=== PATIENT | male | born 1995 | race American Indian/Alaskan Native ===

== ENCOUNTER 2018-02-19 14:47 | Emergency (ER) | payer SELFPAY ==
[2018-02-19 14:55] VITALS: BP 157/96
--- NOTE | 2018-02-19 16:01 | Emergency Department Report ---
- General Chief complaint: Skin Rash Stated complaint: BACK PAIN/SKIN INFECTION Time Seen by Provider: 02/19/18 15:46 Source: patient Mode of arrival: Ambulatory Limitations: No Limitations - History of Present Illness Initial comments: Patient is a 23-year-old gentleman who is complaining of infection to the skin mostly on his back now spreading to the upper chest. Patient has had multiple bouts of lesions in this area over the last several years. Patient told his father that he was in pain 6 out of 10 today which is what prompted him to come to the hospital. Patient has a family history of skin infections. Patient denies any fevers chills nausea vomiting at this time. - Related Data Previous Rx's Medication Instructions Recorded Last Taken Type Chlorhexidine Gluconate [Hibiclens] 1 applic TP BID #236 ml 02/19/18 Unknown Rx Clindamycin [Clindamycin CAP] 300 mg PO Q8H 10 Days cap 02/19/18 Unknown Rx Ibuprofen [Motrin] 800 mg PO Q8HR PRN #20 tablet 02/19/18 Unknown Rx Mupirocin Calcium [Bactroban Nasal 1 gm NS BID #1 tube 02/19/18 Unknown Rx 2%] traMADol [Ultram] 50 mg PO Q6HR PRN #12 tablet 02/19/18 Unknown Rx Allergies Allergy/AdvReac Type Severity Reaction Status Date / Time No Known Allergies Allergy Verified 02/19/18 14:53 Abscess Boil HPI - HPI Chief Complaint: Skin Rash Stated Complaint: BACK PAIN/SKIN INFECTION Time Seen by Provider: 02/19/18 15:46 Home Medications: Previous Rx's Medication Instructions Recorded Last Taken Type Chlorhexidine Gluconate [Hibiclens] 1 applic TP BID #236 ml 02/19/18 Unknown Rx Clindamycin [Clindamycin CAP] 300 mg PO Q8H 10 Days cap 02/19/18 Unknown Rx Ibuprofen [Motrin] 800 mg PO Q8HR PRN #20 tablet 02/19/18 Unknown Rx Mupirocin Calcium [Bactroban Nasal 1 gm NS BID #1 tube 02/19/18 Unknown Rx 2%] traMADol [Ultram] 50 mg PO Q6HR PRN #12 tablet 02/19/18 Unknown Rx Allergies/Adverse Reactions: Allergies Allergy/AdvReac Type Severity Reaction Status Date / Time No Known Allergies Allergy Verified 02/19/18 14:53 ED Review of Systems ROS: Stated complaint: BACK PAIN/SKIN INFECTION Other details as noted in HPI Comment: All other systems reviewed and negative ED Past Medical Hx - Past Medical History Previous Medical History?: No - Surgical History Past Surgical History?: No - Social History Smoking Status: Current Every Day Smoker Substance Use Type: None - Medications Home Medications: Home Medications Medication Instructions Recorded Confirmed Last Taken Type Chlorhexidine Gluconate [Hibiclens] 1 applic TP BID #236 ml 02/19/18 Unknown Rx Clindamycin [Clindamycin CAP] 300 mg PO Q8H 10 Days cap 02/19/18 Unknown Rx Ibuprofen [Motrin] 800 mg PO Q8HR PRN #20 tablet 02/19/18 Unknown Rx Mupirocin Calcium [Bactroban Nasal 1 gm NS BID #1 tube 02/19/18 Unknown Rx 2%] traMADol [Ultram] 50 mg PO Q6HR PRN #12 tablet 02/19/18 Unknown Rx ED Physical Exam - General Limitations: No Limitations General appearance: alert, in no apparent distress - Head Head exam: Present: atraumatic, normocephalic - Eye Eye exam: Present: normal appearance - ENT ENT exam: Present: mucous membranes moist - Neck Neck exam: Present: normal inspection - Respiratory Respiratory exam: Present: normal lung sounds bilaterally. Absent: respiratory distress - Cardiovascular Cardiovascular Exam: Present: regular rate, normal rhythm. Absent: systolic murmur, diastolic murmur, rubs, gallop - GI/Abdominal GI/Abdominal exam: Present: soft, normal bowel sounds - Rectal Rectal exam: Present: deferred - Extremities Exam Extremities exam: Present: normal inspection - Back Exam Back exam: Present: normal inspection - Neurological Exam Neurological exam: Present: alert, oriented X3 - Psychiatric Psychiatric exam: Present: normal affect, normal mood - Skin Skin exam: Present: warm, dry, intact, normal color, rash, other (patient has multiple scars throughout the entire back. Patient also has erythematous papules and pustules diffusely as well. These lesions are most consistent with a staph infection. 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 Patient was started on clindamycin as well as pain management the patient will be given chlorhexidine soap to wash with Critical care attestation.: If time is entered above; I have spent that time in minutes in the direct care of this critically ill patient, excluding procedure time. ED Disposition Clinical Impression: Skin infection, Hydradenitis Disposition: DC- TO HOME OR SELFCARE Is pt being admited?: No Does the pt Need Aspirin: No Condition: Stable Instructions: Cellulitis (ED), Methicillin Resistant Staphylococcus Aureus (ED) Referrals: YONATAN LINK MD [Staff Physician] - 3-5 Days Time of Disposition: 16:04
== END 2018-02-19 16:54 | disposition home or self-care (01) ==
LOC: ED 14:47
DX: L73.2 Hidradenitis suppurativa (principal); F17.200 Nicotine dependence, unspecified, uncomplicated
CPT/HCPCS: 99282

== ENCOUNTER 2018-07-25 12:38 | Emergency (ER) | payer OTHER ==
[2018-07-25] MEDS ORDERED: TYLENOL PO ONE ×2 (13:08→13:09)
--- NOTE | 2018-07-25 13:08 | Emergency Department Report ---
Chief Complaint: Abdominal Pain Stated Complaint: RT SIDE PAIN Time Seen by Provider: 07/25/18 13:06 - HPI History of Present Illness: r flank pain bm this am no difficulty urinating no fever HR 83 no drugs no etoh no cig psh none pmh none pcp none MSE COMPLETED MSE screening note: Focused history and physical exam performed. Due to findings the following was ordered: ED Disposition for MSE Condition: Stable
[2018-07-25] MEDS ORDERED: TYLENOL ONE (13:12)
[2018-07-25 13:45] LABS: Basophils % (Auto) 0.3 % (0.0-1.8); Hematocrit 42.1 % (35.5-45.6); Hemoglobin 14.5 gm/dl (11.8-15.2); Lymphocytes # (Auto) 1.7 K/mm3 (1.2-5.4); Lymphocytes % (Auto) 9.8 % (13.4-35.0); Mean Corpuscular HGB Conc 35 % (32-34); Mean Corpuscular Volume 83 fl (84-94); Monocytes # (Auto) 0.9 K/mm3 (0.0-0.8); Monocytes % (Auto) 5.1 % (0.0-7.3); Platelet Count 283 K/mm3 (140-440); Red Blood Count 5.06 M/mm3 (3.65-5.03)
[2018-07-25 14:01] LABS: Alanine Aminotransferase 19 units/L (7-56); Albumin 4.2 g/dL (3.9-5); BUN/Creatinine Ratio 11; Blood Urea Nitrogen 10 mg/dL (9-20); Calcium 9.1 mg/dL (8.4-10.2); Hemolysis Index 26
[2018-07-25 14:02] LABS: Bilirubin,Direct < 0.2 mg/dL (0-0.2)
[2018-07-25] MEDS ORDERED: ZOFRAN IV ONE (14:19)
[2018-07-25] MEDS ORDERED: TORADOL IV ONE (14:19)
[2018-07-25] MEDS ORDERED: SUBLIMAZE IV ONE (14:20)
--- NOTE | 2018-07-25 14:27 | Emergency Department Report ---
HPI - General Chief Complaint: Abdominal Pain Time Seen by Provider: 07/25/18 13:06 - HPI HPI: Room 3 The patient is a 23-year-old male presented with a chief complaint of right flank pain. The patient states he awakened this morning at 10:00 with pain in his right flank described as sharp like an ice pick. Patient states he attempted to urinate and noticed decreased urination. Patient denies dysuria or hematuria. The patient states he is a hot compress but it did not help his pain. The patient is to one episode of nausea and vomiting. Patient denies history of fever. The patient states his pain was a 10/10 so EMS was called. Currently the patient gives his pain a score of 5/10 Location: Right flank Duration: [See above] Quality: Sharp Severity: 5/10 Modifying factors: [see above] Context: [see above] Mode of transportation: [not driving] ED Past Medical Hx - Past Medical History Previous Medical History?: No - Surgical History Past Surgical History?: No - Family History Family history: no significant - Social History Smoking Status: Current Some Day Smoker Substance Use Type: None (denies illicit drug use), Alcohol (occasional) - Medications Home Medications: Home Medications Medication Instructions Recorded Confirmed Last Taken Type Chlorhexidine Gluconate [Hibiclens] 1 applic TP BID #236 ml 02/19/18 Unknown Rx Clindamycin [Clindamycin CAP] 300 mg PO Q8H 10 Days cap 02/19/18 Unknown Rx Ibuprofen [Motrin] 800 mg PO Q8HR PRN #20 tablet 02/19/18 Unknown Rx Mupirocin Calcium [Bactroban Nasal 1 gm NS BID #1 tube 02/19/18 Unknown Rx 2%] traMADol [Ultram] 50 mg PO Q6HR PRN #12 tablet 02/19/18 Unknown Rx Loperamide HCl [Imodium A-D] 2 mg PO Q6H PRN #20 tablet 03/17/18 Unknown Rx HYDROcodone/APAP 5-325 [[place] 1 - 2 each PO Q6HR PRN #14 tablet 07/25/18 Unknown Rx 5/325] Ibuprofen [Motrin 800 MG tab] 800 mg PO Q8HR PRN #20 tablet 07/25/18 Unknown Rx Promethazine [Phenergan TAB] 25 mg PO Q6HR PRN #20 tab 07/25/18 Unknown Rx Promethazine [Phenergan] 25 mg FL Q6HR PRN #5 supp.rect 07/25/18 Unknown Rx ED Review of Systems ROS: Stated complaint: RT SIDE PAIN Other details as noted in HPI Constitutional: denies: fever Eyes: denies: eye pain ENT: denies: throat pain Respiratory: no symptoms reported Cardiovascular: denies: chest pain Endocrine: no symptoms reported Gastrointestinal: abdominal pain, nausea, vomiting Genitourinary: denies: dysuria, hematuria Musculoskeletal: denies: back pain Neurological: denies: headache Physical Exam - Physical Exam Vital Signs: Vital Signs 07/25/18 07/25/18 13:06 13:13 Temperature 97.9 F Pulse Rate 83 Respiratory 20 18 Rate Blood Pressure 150/109 O2 Sat by Pulse 99 Oximetry Physical Exam: GENERAL: The patient is well-developed well-nourished male lying on stretcher not appearing to be in acute distress. [] HEENT: Normocephalic. Atraumatic. Extraocular motions are intact. Patient has moist mucous membranes. NECK: Supple. Trachea midline CHEST/LUNGS: Clear to auscultation. There is no respiratory distress noted. HEART/CARDIOVASCULAR: Regular. There is no tachycardia. There is no gallop rub or murmur. ABDOMEN: Abdomen is soft, nontender. Patient has normal bowel sounds. There is no abdominal distention. SKIN: There is no diaphoresis. NEURO: The patient is awake, alert, and oriented. The patient is cooperative. The patient has normal speech MUSCULOSKELETAL: There is no CVA tenderness. There is no evidence of acute injury. ED Course Vital Signs 07/25/18 07/25/18 13:06 13:13 Temperature 97.9 F Pulse Rate 83 Respiratory 20 18 Rate Blood Pressure 150/109 O2 Sat by Pulse 99 Oximetry ED Medical Decision Making - Lab Data Result diagrams: 07/25/18 13:30 07/25/18 13:30 Laboratory Tests 07/25/18 07/25/18 07/25/18 13:30 13:30 14:19 WBC 17.7 H RBC 5.06 H Hgb 14.5 Hct 42.1 MCV 83 L MCH 29 MCHC 35 H RDW 14.0 Plt Count 283 Lymph % (Auto) 9.8 L [place] % (Auto) 5.1 Eos % (Auto) 0.0 Baso % (Auto) 0.3 Lymph # 1.7 [place] # 0.9 H Eos # 0.0 Baso # 0.0 Seg Neutrophils % 84.8 H Seg Neutrophils # 15.0 H Sodium 136 L Potassium 4.1 Chloride 100.2 Carbon Dioxide 23 Anion Gap 17 BUN 10 Creatinine 0.9 Estimated GFR > 60 BUN/Creatinine Ratio 11 Glucose 131 H Calcium 9.1 Total Bilirubin 0.30 Direct Bilirubin < 0.2 AST 19 ALT 19 Alkaline Phosphatase 95 Total Protein 8.3 H Albumin 4.2 Albumin/Globulin Ratio 1.0 Lipase 17 Urine Color Yellow Urine Turbidity Clear Urine pH 5.0 Ur Specific [place] 1.029 Urine Protein 30 mg/dl Urine Glucose (UA) Neg Urine Ketones Neg Urine Blood Lg Urine Nitrite Neg Urine Bilirubin Neg Urine Urobilinogen < 2.0 Ur Leukocyte Esterase Neg Urine WBC (Auto) 3.0 Urine RBC (Auto) 114.0 U Epithel Cells (Auto) 1.0 Urine Mucus 3+ - Radiology Data Radiology results: report reviewed (CT abdomen and pelvis), image reviewed (CT abdomen pelvis) Findings [place] [id number] Cat Scan Report Signed Patient: SCOTT HERRERA MR#: [id number] : 1995 Acct:[id number] Age/Sex: 23 / M ADM Date: 07/25/18 Loc: ED Attending Dr: Ordering Physician: SUJATA TOSCANO MD Date of Service: 07/25/18 Procedure(s): CT abdomen pelvis wo con Accession Number(s): [id number] cc: SUJATA TOSCANO MD PROCEDURE: CT ABDOMEN PELVIS WO CON TECHNIQUE: Computerized axial tomography of the abdomen and pelvis was performed without intravenous contrast. This study is performed without intravascular contrast material and its sensitivity for abdominal and pelvic pathology, including neoplasms, inflammation, abscess, free fluid, thrombosis, arterial dissection and infarction, is reduced compared with a contrast enhanced study. HISTORY: right flank pain, leukocytosis COMPARISONS: None . FINDINGS: Visualized lower thorax: No acute abnormality. Liver: Normal size and attenuation. Spleen: Normal size and attenuation. Gallbladder and hillary iary system: Normal. Pancreas: Normal. Adrenals: Normal. Kidneys: There is a 2 mm calculus at the right ureterovesical junction with mild right hydroureteronephrosis. There is a punctate 1 to 2 mm nonobstructing calculus in the right kidney upper pole. There is a punctate 1 mm calculus in the right kidney midpole. There is a 1 to 2 mm nonobstructing calculus in the left kidney lower pole. GI tract: The appendix is visualized and does not appear inflamed. No bowel obstruction or inflammation . Lymph nodes and mesentery: There are enlarged bilateral inguinal lymph nodes, measuring up to 13 mm short axis. Borderline sized 1 cm upper abdominal lymph nodes. Vasculature: Normal.. Bladder: Normal. Reproductive organs: Normal. Peritoneum: No free fluid. Musculoskeletal structures: No significant abnormality. Other: None. IMPRESSION: 2 mm calculus at the right ureterovesical junction, with mild right hydroureteronephrosis. Bilateral renal calculi. Enlarged bilateral inguinal lymph nodes . This document is electronically signed by Charisse Ace MD., July 25 2018 03:46:59 PM ET Transcribed By: [facility] Dictated By: CHARISSE ACE M.D. Electronically Authenticated By: CHARISSE ACE M.D. Signed Date/Time: 07/25/18 1548 DD/ 1459 TD/TT: 07/25/18 1500 - Differential Diagnosis renal colic, appendicitis, pyelonephritis Critical care attestation.: If time is entered above; I have spent that time in minutes in the direct care of this critically ill patient, excluding procedure time. ED Disposition Clinical Impression: Acute right flank pain, Renal colic on right side Disposition: DC-01 TO HOME OR SELFCARE Is pt being admited?: No Does the pt Need Aspirin: No Condition: Stable Instructions: Renal Colic (ED) Additional Instructions: Return to the emergency department immediately should you develop worsening symptoms, fever, inability to tolerate food or liquid or any other concerns. Prescriptions: Ibuprofen [Motrin 800 MG tab] 800 mg PO Q8HR PRN #20 tablet PRN Reason: Pain, Moderate (4-6) HYDROcodone/APAP 5-325 [[place] 5/325] 1 - 2 each PO Q6HR PRN #14 tablet PRN Reason: Pain Promethazine [Phenergan] 25 mg FL Q6HR PRN #5 supp.rect PRN Reason: Vomiting Promethazine [Phenergan TAB] 25 mg PO Q6HR PRN #20 tab PRN Reason: Nausea Referrals: [facility] MD DOMINIK [Primary Care Provider] - 3-5 Days TYRONE WRIGHT MD [Staff Physician] - 3-5 Days (Dr. Wright is a urologist. Please follow-up with him for further evaluation) Time of Disposition: 15:59
[2018-07-25 14:44] LABS: Bilirubin,Urine NEG (Negative); Blood,Urine LG (Negative); Color,Urine Yellow (Yellow); Mucus,Urine 3+ /HPF; Urobilinogen,Urine < 2.0 mg/dL (<2.0)
--- NOTE | 2018-07-25 15:48 | Cat Scan Report ---
PROCEDURE: CT ABDOMEN PELVIS WO CON TECHNIQUE: Computerized axial tomography of the abdomen and pelvis was performed without intravenous contrast. This study is performed without intravascular contrast material and its sensitivity for ab dominal and pelvic pathology, including neoplasms, inflammation, abscess, free fluid, thrombosis, art erial dissection and infarction, is reduced compared with a contrast enhanced study. HISTORY: right flank pain, leukocytosis COMPARISONS: None . FINDINGS: Visualized lower thorax: No acute abnormality. Liver: Normal size and attenuation. Spleen: Normal size and attenuation. Gallbladder and biliary system: Normal. Pancreas: Normal. Adrenals: Normal. Kidneys: There is a 2 mm calculus at the right ureterovesical junction with mild right hydroureterone phrosis. There is a punctate 1 to 2 mm nonobstructing calculus in the right kidney upper pole. There is a punctate 1 mm calculus in the right kidney midpole. There is a 1 to 2 mm nonobstructing calculus in the left kidney lower pole. GI tract: The appendix is visualized and does not appear inflamed. No bowel obstruction or inflammat ion . Lymph nodes and mesentery: There are enlarged bilateral inguinal lymph nodes, measuring up to 13 mm s hort axis. Borderline sized 1 cm upper abdominal lymph nodes. Vasculature: Normal.. Bladder: Normal. Reproductive organs: Normal. Peritoneum: No free fluid. Musculoskeletal structures: No significant abnormality. Other: None. IMPRESSION: 2 mm calculus at the right ureterovesical junction, with mild right hydroureteronephrosis. Bilateral renal calculi. Enlarged bilateral inguinal lymph nodes . This document is electronically signed by Charisse Ace MD., July 25 2018 03:46:59 PM ET
[2018-07-25 19:20] VITALS: BP 133/69
== END 2018-07-25 17:35 | disposition home or self-care (01) ==
LOC: ED 12:38
DX: N23 Unspecified renal colic (principal); F17.200 Nicotine dependence, unspecified, uncomplicated
CPT/HCPCS: 36415; 74176; 80048; 80076; 81001; 83690; 85025; 87040; 96374; 96375; 99284; J1885; J2405; J3010